=== PATIENT | male | born 1955 | race African-American/Black ===

== ENCOUNTER 2016-10-25 15:50 | Emergency (ER) | payer OTHER ==
[~2016-10-25 15:50] MED LIST: *UNABLE1; *UNABLE3; ALBUTEROL NEBULIZER PO; AMB5 PO; APRES50 PO; ASA5GR PO; ASAB PO; ASABAYER PO; ASAEC PO; AT25 PO; AUG875 PO; BACDS PO; CAT1 PO; CHLORTHALID50 MG OR; CHLORTHALID50 MG PO; CIP2 PO; COLCH6 PO; COLCRYS0.6 MG PO; COREG12 PO; COREG25 PO; DEMA20 PO; DIABET2.5 PO; DUONEB INH; ENULOSE PO; FERROUS SULF325 M1 PO; FLAG500TAB PO; FLORASTOR250 MG PO; FLORINEF0.1 MG PO; GABAPENTIN; GLUCOPHAGE1000 MG PO; GLUCOTROL5 PO; HALF81 PO; HUMALOG SC; HUMIBID1200 MG PO; IMDUR; IMDUR30 PO; IMDUR60 PO; IRON325 MG PO; JANUVIA100 MG PO; KAYEXUD PO; KDUR10 PO; KDUR20 PO; KLOR-CON 1010 MEQ PO; L20 PO; L40 PO; LEVAQUIN5T PO; LEVAQUIN750 MG PO; LEVEMFLXPN SC; LEVEMIR SC; LEVOTHROID125 MCG PO; LEVOTHYROXIN125 MCG PO; LEVOTHYROXIN200 MCG PO; LIPITOR80 MG PO; LISINOPRIL; MAG-OX; MAGOX4 PO; METFORMIN; MIRALAXPKT PO; NEUR100 PO; NEUR300 PO; NEUR600 PO; NORCO1 TA1 PO; NORV10 PO; P10 PO; PCET PO; PHISOHEX T; PRAVAC PO; PRAVACHOL40 MG PO; PRAVASTATIN; PRIN20 PO; PROAIR HFA INH; PROAIR HFA PO; PROTONIX PO; PROVENTSOL INH; SENTAB PO; SYN.15 PO; SYN125 PO; SYNTHROID; SYNTHROID200 MCG PO; TETRACYCLINE PO; TORSEMIDE; VIB100 PO; ZESTORETIC PO; ZESTRIL20 MG PO; ZOFRAN4 PO
[2016-10-25] MEDS ORDERED: *UNABLE1 (18:20)
[2016-10-25] MEDS ORDERED: METFORMIN (18:21)
[2016-10-25] MEDS ORDERED: GABAPENTIN (18:22)
[2016-10-25] MEDS ORDERED: ASPIRIN (18:22)
[2016-10-25] MEDS ORDERED: ISOSORBIDE (18:22)
[2016-10-25 19:22] LABS: BASOPHILS 0.2 %; BASOPHILS ABSOLUTE 0.01 10/3/uL (0.0-0.16); EOSINOPHILS 2.1 %; IMMATURE GRANULOCYTES 0.2 %; IMMATURE GRANULOCYTES ABSOLUTE 0.01 10/3/uL (0.0-0.11); LYMPHOCYTES 25.4 %; LYMPHOCYTES ABSOLUTE 1.23 10/3/uL (0.67-4.30); MEAN CORPUS HGB CONC 34.2 g/dL (32.0-36.0); MEAN CORPUSCULAR HEMOGLOB 30.3 pg (26.0-34.0); MEAN CORPUSCULAR VOLUME 88.6 fL (80-100); MEAN PLATELET VOLUME 8.9 fL (9.2-13.0); MONOCYTES 6.8 %; MONOCYTES ABSOLUTE 0.33 10/3/uL (0.21-1.20); NEUTROPHILS 65.3 %; NEUTROPHILS ABSOLUTE 3.17 10/3/uL (2.02-8.40); RBC DISTRIBUTION WIDTH 14.7 % (12.0-16.0)
[2016-10-25 19:23] LABS: ER CBC TAT 0 Hrs 03 Mins; HEMATOCRIT 35.1 % (40.0-51.0); MANUAL DIFF NO %; PLATELET COUNT 411 10/3/uL (150-400); RED CELL COUNT 3.96 10/6/uL (4.7-6.1); WHITE BLOOD CELLS 4.9 10/3/uL (4.5-10.5)
[2016-10-25 19:32] LABS: PARTIAL THROMBO TIME 35.8 SEC (22.5-37.2); PROTIME (NOT ORD) 13.1 SEC (12.0-14.5)
[2016-10-25 19:40] LABS: BUN (BLOOD UREA NITROGEN) 17 MG/DL (6-23); CALCIUM, SERUM 8.8 MG/DL (8.5-10.4); CHLORIDE, SERUM 104 MMOL/L (96-112); CO2 (CARBON DIOXIDE) 28 MMOL/L (24-34); CREATININE 1.44 MG/DL (0.70-1.30); GFR AFRICAN AMERICAN 60 ML/MIN (>=60); GFR NON AFRICAN AMERICAN 52 ML/MIN (>=60); GLUCOSE, SERUM 100 MG/DL (60-99); POTASSIUM, SERUM 3.6 MMOL/L (3.5-5.3); SODIUM, SERUM 137 MMOL/L (135-148)
[2016-10-25 19:41] LABS: CHEST PAIN PROFILE TAT 0 Hrs 21 Mins; TROPONIN I 0.08 NG/ML (<0.05)
[2016-12-13] MEDS ORDERED: *UNABLE1 (09:47)
[2016-12-14] MEDS ORDERED: LUMIGAN2.5 ML OPH (08:42)
[2016-12-14] MEDS ORDERED: PRAVACHOL40 MG PO (08:44)
[2016-12-14] MEDS ORDERED: SYNTHROID200 MCG PO (08:44)
[2016-12-14] MEDS ORDERED: GLUCOPHAGE1000 MG PO (08:44)
[2016-12-14] MEDS ORDERED: DEMA20 PO (08:44)
[2016-12-14] MEDS ORDERED: MONOKET PO (08:45)
[2016-12-14] MEDS ORDERED: NEUR300 PO (08:45)
[2016-12-14] MEDS ORDERED: ASAB PO (08:46)
[2016-12-14] MEDS ORDERED: NORV10 PO (08:46)
[2016-12-18] MEDS ORDERED: NEUR100 PO (10:04)
[2016-12-18] MEDS ORDERED: MONOKET PO (10:05)
[2016-12-18] MEDS ORDERED: SYN.15 PO (10:05)
[2016-12-18] MEDS ORDERED: AMARYL1 MG PO (10:06)
[2016-12-18] MEDS ORDERED: DEMA20 PO (10:06)
[2016-12-18] MEDS ORDERED: PRAVACHOL40 MG PO (10:06)
[2016-12-18] MEDS ORDERED: MIRALAX POWDER1 PKT PO (10:07)
== END 2016-10-25 23:45 | disposition home or self-care (01) ==
LOC: ER 15:50
PROVIDERS: Nurse Practitioner Family
DX: Z91.14 Patient's other noncompliance with medication regimen (principal); I16.0 Hypertensive urgency; R79.89 Other specified abnormal findings of blood chemistry; L73.2 Hidradenitis suppurativa; J44.9 Chronic obstructive pulmonary disease, unspecified; I11.0 Hypertensive heart disease with heart failure; I50.9 Heart failure, unspecified; E11.9 Type 2 diabetes mellitus without complications; D64.9 Anemia, unspecified; F17.200 Nicotine dependence, unspecified, uncomplicated; I73.9 Peripheral vascular disease, unspecified; Z86.73 Personal history of transient ischemic attack (TIA), and cerebral infarction without residual deficits
CPT/HCPCS: 71010; 74176; 80048; 83735; 83880; 84484; 85025; 85610; 85730; 87040; 99285; A9270-GY